=== PATIENT | male | born 1955 | race Caucasian/White ===

== ENCOUNTER 2016-08-16 13:28 | Emergency (ER) | payer BC ==
[~2016-08-16 13:28] MED LIST: ASPIRIN LOW STR81 MG PO; ERYTHROMYCIN3.5 GM OP; NO MEDS
[2016-08-16] MEDS ORDERED: KEFLEX500 M4 PO (18:07)
[2016-08-16] MEDS ORDERED: NORCO 5-325 TA1 EACH PO (18:07)
== END 2016-08-16 18:25 ==
LOC: EDMED 13:28
PROC: 0HQMXZZ Repair Right Foot Skin, External Approach (ICD-10-PCS; principal; 2016-08-16)
DX: S92.421B Displaced fracture of distal phalanx of right great toe, initial encounter for open fracture (principal); W22.09XA Striking against other stationary object, initial encounter; Y92.019 Unspecified place in single-family (private) house as the place of occurrence of the external cause
CPT/HCPCS: J0690